=== PATIENT | male | born 1970 | race African-American/Black ===

== ENCOUNTER 2017-02-08 02:07 | Inpatient (IN) ==
[2017-02-08] MEDS ORDERED: ALBUTEROL 2.5 MG/3 ML NEB RESP TX STA (02:43)
[2017-02-08] MEDS ORDERED: methylPREDNISolone SOD SUC 125 MG/2 ML VIAL IV STA (02:43)
[2017-02-08] MEDS ORDERED: ALBUTEROL 2.5 MG/3 ML NEB RESP TX ONE (02:56)
[2017-02-08 03:03] LABS: Basophils # 0.1 10*3/uL (0.0-0.2); Basophils % 0.4 % (0.0-0.8); Eosinophils # 0.1 10*3/uL (0.0-0.87); Eosinophils % 0.7 % (0.00-10.9); Hemoglobin 13.2 GM/DL (14.0-18.0); Immature Granulocytes % 0.6 %; Lymphocytes # 3.3 10*3/uL (1.4-4.0); Lymphocytes % 19.5 % (21.2-54.2); Mean Corpuscular HGB Conc 32.2 GM/DL (32-36); Mean Corpuscular Hemoglobin 29 PG (27-34); Mean Corpuscular Volume 91.1 FL (87-102); Mean Platelet Volume 12.3 FL (9.6-12.0); Monocytes # 1.4 10*3/uL (0.11-0.8); Monocytes % 8.2 % (1.7-12.7); Neutrophils % 70.6 % (38.7-73.9); Platelet Count 266 T/CUMM (130-400); Red Cell Distribution Width 15.1 % (9.3-17.3); VBG Base Excess -0.6 MEQ/L (0-4); VBG HCO3 25.7 MEQ/L (24-28); VBG PCO2 48.7 MMHG (41-51); VBG PO2 45.5 MMHG (17-40)
[2017-02-08] MEDS ORDERED: MAGNESIUM SULF RIDER 1 GM in PREMIX 1 EACH IV STA ×2 (03:23→03:26)
[2017-02-08] MEDS ORDERED: TERBUTALINE 1 MG/1 ML VIAL SUBCUT ONE ×2 (03:23→03:24)
[2017-02-08] MEDS ORDERED: methylPREDNISolone SOD SUC 125 MG/2 ML VIAL ONE (03:24)
[2017-02-08] MEDS ORDERED: MAGNESIUM SULF RIDER 50 ML IV ONE (03:32)
[2017-02-08] MEDS: ALBUTEROL 1.25 MG/3 ML NEB RESP TX SCH ×5 (07:18→23:30)
[2017-02-08 07:54] LABS: Calcium 9.2 MG/DL (8.5-10.1); Osmolality,Calculated 279.7 MOS/KG (273-304); Potassium 3.9 MMOL/L (3.5-5.1)
[2017-02-08] MEDS: methylPREDNISolone SOD SUC 125 MG/2 ML VIAL IV SCH ×3 (09:17→22:40)
[2017-02-08] MEDS: FLUTICASONE/SALMETEROL 500-50 DISKUS 14 DOSE INH SCH ×2 (09:20→22:39)
[2017-02-08] MEDS: MONTELUKAST 10 MG TABLET PO SCH (22:39)
[2017-02-09] MEDS: ALBUTEROL 1.25 MG/3 ML NEB RESP TX SCH ×6 (02:31→23:26)
[2017-02-09] MEDS: methylPREDNISolone SOD SUC 125 MG/2 ML VIAL IV SCH ×4 (03:13→21:53)
[2017-02-09] MEDS: FLUTICASONE/SALMETEROL 500-50 DISKUS 14 DOSE INH SCH ×2 (10:14→21:56)
[2017-02-09] MEDS: MONTELUKAST 10 MG TABLET PO SCH (21:53)
[2017-02-10] MEDS: ALBUTEROL 1.25 MG/3 ML NEB RESP TX SCH ×5 (02:10→20:10)
[2017-02-10] MEDS: methylPREDNISolone SOD SUC 125 MG/2 ML VIAL IV SCH ×3 (04:01→16:28)
[2017-02-10] MEDS: FLUTICASONE/SALMETEROL 500-50 DISKUS 14 DOSE INH SCH ×2 (09:38→21:35)
[2017-02-10] MEDS: methylPREDNISolone SOD SUC 40 MG/1 ML VIAL IV SCH (21:35)
[2017-02-10] MEDS: MONTELUKAST 10 MG TABLET PO SCH (21:35)
[2017-02-11] MEDS: ALBUTEROL 1.25 MG/3 ML NEB RESP TX SCH ×4 (00:12→11:40)
[2017-02-11] MEDS: methylPREDNISolone SOD SUC 40 MG/1 ML VIAL IV SCH (09:09)
[2017-02-11] MEDS: FLUTICASONE/SALMETEROL 500-50 DISKUS 14 DOSE INH SCH (09:09)
[2017-02-11 11:53] VITALS: BP 146/73
== END 2017-02-11 12:48 | disposition home or self-care (01) | DRG 202 ==
LOC: N.ED 02:07 → N.EDINP 05:13 → N.2E 06:13
PROVIDERS: ADMIT Family Medicine; ATTEND Family Medicine